=== PATIENT | male | born 1960 | race Caucasian/White ===

== ENCOUNTER 2021-07-31 12:00 | Emergency (ER) | payer SELFPAY ==
[2021-07-31 12:08] VITALS: BP 131/81; PULSE 99; RESP 14; TEMP 36.8; O2SAT 99; BMI 31.4
--- NOTE | 2021-07-31 12:22 | ED_ITS ---
HPI - Extremity Problem General: Chief complaint: Extremity Injury, Lower Stated complaint: Left knee pain Time Seen by Provider: 07/31/21 12:18 Source: patient Mode of arrival: ambulatory Limitations: no limitations History of Present Illness: 60-year-old male who states that he has had an area of swelling and redness to the left knee going up his left leg she has been very warm to touch he states it is very painful to try to walk and painful to palpation. Denies any fevers denies any vomiting or diarrhea denies any known injuries. Associated symptoms: Deny chest pain or fever(s) Review of Systems Const: Denies: fever(s), chills, body aches or change in appetite Eyes: Denies: blurry vision or eye discomfort ENMT: Denies: throat pain or dental pain Card: Denies: chest pain Resp: Denies: dyspnea GI: Denies: abdominal pain, nausea, vomiting or diarrhea : Denies: dysuria Musc: Denies: neck pain or back pain Skin/Breast: Reports: erythema Neuro: Denies: headache(s) Psych: Denies: depression Wayne/Lymph: Denies: easy bruising All/Imm: Denies: urticaria PFSH ED PFSH: Medical History Alcohol use disorder Cigarette smoker Major depression, recurrent, full remission Psychiatric care Social History Smoking and tobacco status: current every day smoker cigarettes Packs smoked per day: 1.5 Years cigarettes smoked: 45 Quit status (tobacco): not considering quitting Second hand smoke exposure: No Physical Exam Const: COMMON NORMALS: no acute distress, patient oriented x3 and healthy appearing HENMT: COMMON NORMALS: normocephalic and atraumatic HEAD & SCALP: normocephalic and atraumatic Eye: COMMON NORMALS: Equal, round and reactive pupils present and EOMs intact bilaterally PUPIL: Yes Equal, round and reactive pupils present Neck/C-Spine: COMMON NORMALS: full ROM and supple Chest: COMMONS NORMALS: normal inspection of the chest and normal palpation of entire chest wall Resp: COMMON NORMALS: normal respiratory effort, No retractions, No use of accessory muscles and clear to auscultation bilaterally AUSCULTATION: clear to auscultation bilaterally Cardio: COMMON NORMALS: regular rate, regular rhythm and No murmurs present (Cardio) RATE: regular rate RHYTHM: regular rhythm GI: COMMON NORMALS: Normal to inspection, nondistended, normoactive bowel sounds present, Soft to palpation, non-tender and no masses PALPATION: Yes Soft to palpation Extremity: COMMON NORMALS: full ROM OTHER: 3 cm abscess to left inner leg with warmth and redness to touch Neuro: COMMON NORMALS: patient oriented x3, moves all extremities and no focal motor deficits Psych: COMMON NORMALS: mental status grossly normal, Normal thought process present and cooperative THOUGHT PROCESS: Normal thought process present Skin: COMMON NORMALS: no rashes or lesions noted and no wounds GENERAL SKIN EXAM: no rashes or lesions noted Procedures Abscess I/D Site: lower extremity Side (if applicable): left Local Anesthetic: lidocaine 1% Amount of anesthesia used (mL): 10 Technique: incised with #11 blade Irrigation: No Packing used?: iodoform Course Vital Signs: Vital signs: Vital Signs Temperature 98.2 F 07/31/21 12:08 Pulse Rate 99 07/31/21 12:08 Respiratory Rate 18 07/31/21 12:49 Blood Pressure 154/119 07/31/21 13:21 Pulse Oximetry 93 07/31/21 13:21 MDM - Extremity (Nontraumatic) Medical Decision Making Patient presents here with an abscess to his left inner leg he has no signs of sepsis he does have some secondary cellulitis abscess was drained and packed he is to remove the packing in 2 days or return to the ER for wound check and packing removal we will place him on antibiotics he is stable for discharge. Discharge Plan Discharge Patient Disposition: Home Clinical Impression: Abscess Condition: Stable Prescriptions: New hydrocodone-acetaminophen 5-325 mg tablet 1 tab PO Q6H PRN (Reason: pain) Qty: 14 0RF Bactrim DS 800-160 mg tablet 1 tab PO BID 10 Days Qty: 20 0RF No Action aspirin [Adult Low Dose Aspirin] 81 mg tablet,delayed release (DR/EC) 81 mg PO DAILY 0RF bupropion HCl [Wellbutrin XL] 300 mg tablet extended release 24 hr 300 mg PO QAM Qty: 30 11RF bupropion HCl [Wellbutrin XL] 150 mg tablet extended release 24 hr 150 mg PO QAM Qty: 30 11RF venlafaxine [Effexor XR] 150 mg capsule,extended release 24hr 300 mg PO DAILY Qty: 60 11RF Discharge Orders: Discharge ED (Routine); Ordered 07/31/21 Ordered By: Reggie Norman Referrals: Jack Barton DO [Family Provider] - Discharge Diet: Advance as tolerated Discharge Activity: Resume usual activity Patient Instructions: Abscess (ED), Opioid Safety Coding Level of Care Code ED [employer] Operator for Chg Fwd Exam Comprehensive
[2021-07-31 12:49] VITALS: RESP 18
[2021-07-31] MEDS: ondansetron 2 mg/ML SDV 2 mL 4 MG IVP (12:49)
[2021-07-31] MEDS: morphine 4 mg/mL SDV 1 mL IVP (12:49)
[2021-07-31] MEDS: vancomycin 1,000 MG in sodium chloride 0.9% 250 ML 250 MG IV (12:50)
--- NOTE | 2021-07-31 13:18 | PC.NURSE ---
Patient has vanc going and then will be discharged.
[2021-07-31 13:21] VITALS: BP 154/119; O2SAT 93
[2021-07-31 13:58] VITALS: BP 133/90; PULSE 91; RESP 16; O2SAT 94
== END 2021-07-31 14:00 | disposition home or self-care (01) ==
PROVIDERS: Emergency Provider Emergency Medicine
DX: L02.416 Cutaneous abscess of left lower limb (principal); L03.116 Cellulitis of left lower limb
CPT/HCPCS: 10060; 87070; 96365; 96375; 99284; J2270; J2405; J3370; J7050

== ENCOUNTER 2023-12-03 06:01 | Day surgery (SDC) | payer OTHER, SELFPAY ==
[2023-12-03 06:22] VITALS: BP 118/72; PULSE 75; RESP 18; TEMP 36.2; O2SAT 99; BMI 28.5
[2023-12-03] MEDS: sodium chloride 0.9% 1,000 ML 30 ML IV (06:30)
[2023-12-03 06:35] LABS: Glucose Point of Care 126 mg/dL (70-110)
--- NOTE | 2023-12-03 07:06 | ANES.PREANE2 ---
Pre-Anesthetic Assessment Height/Weight: Height 5 ft 9 in Weight 193 lb Temp Pulse Resp BP Pulse Ox O2 Del Method 97.2 F L 75 18 118/72 99 Room Air 12/03/23 06:22 12/03/23 06:22 12/03/23 06:22 12/03/23 06:22 12/03/23 06:22 12/03/23 06:22 Preop Diagnosis: Routine colonoscopy Operation Date: 12/03/23 07:30 Proposed Procedures p Colonoscopy - 77554, G0105,R19.5(Not Applicable) - Ryan Marr, DO Was Beta Emir taken within 24 hours: N/A Was Clonidine taken within 24 hours: N/A Last intake: Intake Last Liquid Date 12/03/23 Last Liquid Time 05:30 Last Solid Date 12/01/23 Last Solid Time 23:00 Social Tobacco and No alcohol Exam alert, oriented x 3, clear to auscultation bilaterally and regular rate & rhythm Airway Submandibular: within normal limits Cervical ROM: within normal limits Mallampati: Class III Dentition: false Anesthetic Plan ASA status: 3 Anesthesia: MAC Other: No prior issues with anesthesia Completed bowel prep History of hypertension on lisinopril Diabetes on metformin and dulaglutide GLP-1 taken 11/24 Current smoker Prior TIA Plan for MAC anesthesia Medications/Allergies Home Medications Medication Instructions Recorded Confirmed Last Taken Type aspirin 81 mg tablet,delayed 81 mg PO DAILY 05/12/19 12/03/23 12/02/23 History release (Adult Low Dose Aspirin) metformin 1,000 mg tablet 1,000 mg PO BID 01/16/23 12/03/23 12/02/23 History bupropion HCl 150 mg 24 hr tablet, 150 mg PO QAM #30 tabs 04/26/23 12/03/23 12/02/23 Rx extended release bupropion HCl 300 mg 24 hr tablet, 300 mg PO QAM #30 tabs 04/26/23 12/03/23 12/02/23 Rx extended release dulaglutide 0.75 mg/0.5 mL 0.75 mg SUBCUT .WEEKLY 04/26/23 12/03/23 11/25/23 History subcutaneous pen injector (Trulicity) lisinopril 5 mg tablet 5 mg PO DAILY 04/26/23 12/03/23 12/02/23 History venlafaxine 150 mg 150 mg PO DAILY #30 caps 04/26/23 12/03/23 12/02/23 Rx capsule,extended release 24 hr (Effexor XR) atorvastatin 40 mg tablet 40 mg PO DAILY 07/18/23 12/03/23 12/02/23 History Allergies Allergy/AdvReac Type Severity Reaction Status Date / Time Penicillins Allergy Unknown unknown Verified 11/28/23 10:06 Current Medications Generic Name Dose Route Start Last Admin Trade Name Freq PRN Reason Stop Dose Admin Sodium Chloride 1,000 mls @ 30 mls/hr 12/03/23 06:15 12/03/23 06:30 Sodium Chloride 0.9% IV 12/04/23 06:14 30 mls/hr .Q24H CIARA Administration PFSH Anesthesia Medical History (Updated 11/26/23 @ 13:46 by Ryan Marr DO) Family history of colon cancer Cellulitis of left lower leg Psychiatric care Cigarette smoker Alcohol use disorder Major depression, recurrent, full remission Social History Smoking and tobacco/nicotine status: never used tobacco/nicotine Quit status (tobacco/nicotine): not considering quitting Second hand smoke exposure: No Data Anesthesia Cardiac Studies: No Data to Display
--- NOTE | 2023-12-03 07:26 | W.PM.OPSUD ---
Surgery/Procedure H&P Update DATE OF PROCEDURE: December 03, 2023 DATE H&P PERFORMED: 11/26/23 H&P UPDATE INFORMATION: I have reviewed H&P completed within last 30 days, I have examined patient prior to procedure and No changes to prior documentation PREOP DIAGNOSIS: Routine colonoscopy PLANNED PROCEDURE: Operation Date: 12/03/23 07:30 Proposed Procedures p Colonoscopy - 63263, G0105,R19.5(Not Applicable) - Ryan Marr DO
[2023-12-03 07:48] VITALS: BP 96/66; PULSE 67; RESP 14; TEMP 36.2; O2SAT 98
[2023-12-03 08:12] VITALS: BP 101/73; PULSE 76; RESP 17; O2SAT 96
--- NOTE | 2023-12-03 08:19 | ANE.PACU2 ---
Inpatient post-anesthesia follow up: Airway intact: Yes Vital signs: Temperature 97.1 F Pulse Rate 76 Respiratory Rate 17 Blood Pressure 101/73 Pulse Oximetry 96 Oxygen Delivery Me thod Room Air Oxygen Flow Rate Fraction of Inspir ed Oxygen Hydration adequate: Yes Nausea and vomiting: No Pain level: 1 Mental status: Baseline
== END 2023-12-03 08:19 | disposition home or self-care (01) ==
PROVIDERS: Visit Provider Surgery
PROC: 0DJD8ZZ Inspection of Lower Intestinal Tract, Via Natural or Artificial Opening Endoscopic (ICD-10-PCS; CPT 45378; principal; 2023-12-03 07:30)
DX: Z12.11 Encounter for screening for malignant neoplasm of colon (principal); Z80.0 Family history of malignant neoplasm of digestive organs; Z79.82 Long term (current) use of aspirin; Z79.84 Long term (current) use of oral hypoglycemic drugs; F17.210 Nicotine dependence, cigarettes, uncomplicated; I10 Essential (primary) hypertension; E11.9 Type 2 diabetes mellitus without complications; Z86.73 Personal history of transient ischemic attack (TIA), and cerebral infarction without residual deficits
CPT/HCPCS: 36416; 45378; 82962; J2704; J7030

== ENCOUNTER 2023-12-26 08:45 | Day surgery (SDC) | payer OTHER, SELFPAY ==
[2023-12-26 09:39] VITALS: BP 116/57; PULSE 72; RESP 18; TEMP 36.1; O2SAT 96
[2023-12-26 09:40] VITALS: BMI 27.8
--- NOTE | 2023-12-26 09:42 | ANES.PREANE2 ---
Pre-Anesthetic Assessment Height/Weight: Height 1.75 m Weight 85.729 kg Temp Pulse Resp BP Pulse Ox O2 Del Method 97.0 F L 72 18 116/57 96 Room Air 12/26/23 09:39 12/26/23 09:39 12/26/23 09:39 12/26/23 09:39 12/26/23 09:39 12/26/23 09:39 Operation Date: 12/26/23 10:30 Proposed Procedures p EGD 15196, R19.5(Not Applicable) - Ryan Marr DO Familial anesthetic complications: None Was Beta Emir taken within 24 hours: N/A Was Clonidine taken within 24 hours: N/A Last intake: > 8hrs Social Tobacco and No alcohol Exam alert, oriented x 3, clear to auscultation bilaterally and regular rate & rhythm Airway Mallampati: Class II Dentition: false CV/HEM Hypertension Metabolic Diabetes Mellitus Neuropsych Transient Ischemic Attack Anesthetic Plan ASA status: 3 Anesthesia: MAC Risk of > 500 ml blood loss (7ml/kg in children): No Medications/Allergies Home Medications Medication Instructions Recorded Confirmed Last Taken Type aspirin 81 mg tablet,delayed 81 mg PO DAILY 05/12/19 12/26/23 12/25/23 History release (Adult Low Dose Aspirin) metformin 1,000 mg tablet 1,000 mg PO BID 01/16/23 12/26/23 12/25/23 History bupropion HCl 150 mg 24 hr tablet, 150 mg PO QAM #30 tabs 04/26/23 12/26/23 12/25/23 Rx extended release bupropion HCl 300 mg 24 hr tablet, 300 mg PO QAM #30 tabs 04/26/23 12/26/23 12/25/23 Rx extended release dulaglutide 0.75 mg/0.5 mL 1.5 mg SUBCUT .WEEKLY 04/26/23 12/26/23 12/16/23 History subcutaneous pen injector (Trulicity) lisinopril 5 mg tablet 5 mg PO DAILY 04/26/23 12/26/23 12/25/23 History venlafaxine 150 mg 150 mg PO DAILY #30 caps 04/26/23 12/26/23 12/25/23 Rx capsule,extended release 24 hr (Effexor XR) atorvastatin 40 mg tablet 40 mg PO DAILY 07/18/23 12/26/23 12/25/23 History Allergies Allergy/AdvReac Type Severity Reaction Status Date / Time Penicillins Allergy Unknown unknown Verified 12/26/23 09:37 [facility] Anesthesia Medical History (Updated 11/26/23 @ 13:46 by Ryan Marr DO) Family history of colon cancer Cellulitis of left lower leg Psychiatric care Cigarette smoker Alcohol use disorder Major depression, recurrent, full remission Social History Smoking and tobacco/nicotine status: never used tobacco/nicotine Quit status (tobacco/nicotine): not considering quitting Second hand smoke exposure: No Data Anesthesia Cardiac Studies: No Data to Display
[2023-12-26] MEDS: sodium chloride 0.9% 1,000 ML 30 ML IV (09:46)
[2023-12-26 09:49] LABS: Glucose Point of Care 106 mg/dL (70-110)
--- NOTE | 2023-12-26 10:06 | PM.HP ---
Providers/Chief Complaint Primary Care Provider: DOMINICK Bowman Chief Complaint: R19.5 History of Present Illness Dominic Jain is a 63 year old male who had a positive Cologuard with a negative colonoscopy. Therefore he needs an EGD Review of Systems General: Reports: 10 or more systems reviewed and unremarkable except in HPI and below Medications/Allergies Home Medications Medication Instructions Recorded Confirmed Last Taken Type aspirin 81 mg tablet,delayed 81 mg PO DAILY 05/12/19 12/26/23 12/25/23 History release (Adult Low Dose Aspirin) metformin 1,000 mg tablet 1,000 mg PO BID 01/16/23 12/26/23 12/25/23 History bupropion HCl 150 mg 24 hr tablet, 150 mg PO QAM #30 tabs 04/26/23 12/26/23 12/25/23 Rx extended release bupropion HCl 300 mg 24 hr tablet, 300 mg PO QAM #30 tabs 04/26/23 12/26/23 12/25/23 Rx extended release dulaglutide 0.75 mg/0.5 mL 1.5 mg SUBCUT .WEEKLY 04/26/23 12/26/23 12/16/23 History subcutaneous pen injector (Trulicity) lisinopril 5 mg tablet 5 mg PO DAILY 04/26/23 12/26/23 12/25/23 History venlafaxine 150 mg 150 mg PO DAILY #30 caps 04/26/23 12/26/23 12/25/23 Rx capsule,extended release 24 hr (Effexor XR) atorvastatin 40 mg tablet 40 mg PO DAILY 07/18/23 12/26/23 12/25/23 History Allergies Allergy/AdvReac Type Severity Reaction Status Date / Time Penicillins Allergy Unknown unknown Verified 12/26/23 09:37 PFSH Acute PFSH: Medical History Family history of colon cancer Cellulitis of left lower leg Psychiatric care Cigarette smoker Alcohol use disorder Major depression, recurrent, full remission Social History Smoking and tobacco/nicotine status: never used tobacco/nicotine Quit status (tobacco/nicotine): not considering quitting Second hand smoke exposure: No Vitals/I&O/Wt Last Vital Signs Temp 97.0 F L 12/26/23 09:39 Pulse 72 12/26/23 09:39 Resp 18 12/26/23 09:39 BP 116/57 12/26/23 09:39 Pulse Ox 96 12/26/23 09:39 O2 Del Method Room Air 12/26/23 09:39 Weight last 48 hrs Weight 189 lb Physical Exam Narrative: General : Patient is well developed , no acute distress, oriented x3 Head : Normal cephalic, a-traumatic. Ears : Pinnae and external canal are normal. Hearing is normal. Eyes : PERRLA, Sclera and injection are normal. No conjunctival discharge. Nose : Mucous membranes are without erythema. Throat : buccal mucosa is normal, gums are without significant recession or hypertrophy. Lungs : Equal chest rise bilaterally, no use of accessory muscles, trachea is midline. Cor : Rate and rhythm are normal. Abdomen : Soft, ND, NT, no g/r/m Extremities : No edema, no cyanosis or clubbing, dorsalis pedis pulses are present bilaterally, non-tender to palpation of calves. Upper extremities are normal bilaterally. Back : non-tender to palpation, no CVA tenderness. Neuro : CN II - XII intact, Upper and lower extremities have equal and full strength A&P Assessment and plan (1) Positive colorectal cancer screening using Cologuard test: (2) Family history of colon cancer: Plan EGD The risks and benefits of the procedure, including bleeding, infection, intestinal perforation requiring surgery, missed lesion were explained to the patient. The patient is understanding of the risks and wishes to proceed. Attestations Medical Necessity Statement*: Home Coding Level of Care Code Acute Code for Chg Fwd Diagnoses Positive colorectal cancer screening using Cologuard test R19.5 Family history of colon cancer Z80.0
[2023-12-26 10:18] VITALS: BP 121/80; PULSE 79; RESP 20; TEMP 36.2; O2SAT 95
[2023-12-26 10:25] VITALS: BP 131/79; PULSE 75; RESP 20; O2SAT 96
--- NOTE | 2023-12-26 11:05 | ANE.PACU2 ---
Inpatient post-anesthesia follow up: Airway intact: Yes Vital signs: Temperature 97.1 F Pulse Rate 75 Respiratory Rate 20 Blood Pressure 131/79 Pulse Oximetry 96 Oxygen Delivery Me thod Nasal Cannula Oxygen Flow Rate 2 Fraction of Inspir ed Oxygen Hydration adequate: Yes Nausea and vomiting: No Pain level: 1 Mental status: Baseline
== END 2023-12-26 11:08 | disposition home or self-care (01) ==
PROVIDERS: PCP Nurse Practitioner Family; Visit Provider Surgery
PROC: 0DJ08ZZ Inspection of Upper Intestinal Tract, Via Natural or Artificial Opening Endoscopic (ICD-10-PCS; CPT 43235; principal; 2023-12-26 10:30)
DX: Z12.11 Encounter for screening for malignant neoplasm of colon (principal); Z80.0 Family history of malignant neoplasm of digestive organs; F17.210 Nicotine dependence, cigarettes, uncomplicated; K29.80 Duodenitis without bleeding; K29.70 Gastritis, unspecified, without bleeding; I10 Essential (primary) hypertension; E11.9 Type 2 diabetes mellitus without complications; Z86.73 Personal history of transient ischemic attack (TIA), and cerebral infarction without residual deficits; Z79.82 Long term (current) use of aspirin
CPT/HCPCS: 36416; 43239; 82962; 88305; 88309; J2704; J7030

== ENCOUNTER 2024-02-29 09:59 | Outpatient (CLI) | payer OTHER, SELFPAY | END 2024-02-29 10:00 | disposition home or self-care (01) | LOC: LAB 09:59 | PROVIDERS: PCP Nurse Practitioner Family; Visit Provider Surgery | DX: K29.70 Gastritis, unspecified, without bleeding (principal); B96.81 Helicobacter pylori [H. pylori] as the cause of diseases classified elsewhere | CPT/HCPCS: 87338 ==